=== PATIENT | female | born 1945 | race Caucasian/White ===

== ENCOUNTER 2021-06-24 14:31 | Inpatient (IN) | payer MEDICARE, OTHER ==
[~2021-06-24] VITALS: Ht 152 cm; Wt 59.0 kg
[~2021-06-24 14:31] MED LIST: ASPIRIN EC81 MG PO; ATORVASTATIN CA20 MG PO; CLOPIDOGREL75 MG PO; FUROSEMIDE20 MG PO; GABAPENTIN600 MG PO; HYDROCODON-ACE1 EAC1 PO; LASIX20 MG PO; MOBIC7.5 MG PO; SYNTHROID25 MCG PO
[2021-06-24 15:46] LABS: HEMOGLOBIN 8.4 gm/dl (12.3-15.3); RED BLOOD COUNT 2.91 M/UL (4.00-5.10); WHITE BLOOD COUNT 16.1 K/UL (4.5-11.0)
[2021-06-24] MEDS ORDERED: LEVOTHYROXINE50 MCG PO (18:36)
[2021-06-24] MEDS ORDERED: METOPROLOL TART25 MG PO (18:36)
[2021-06-24] MEDS ORDERED: PREDNISONE10 M1 PO (18:37)
[2021-06-24] MEDS ORDERED: BUMETANIDE0.5 MG PO (18:37)
[2021-06-24] MEDS ORDERED: CEFDINIR300 MG PO (18:38)
[2021-06-25 06:58] LABS: HEMOGLOBIN 8.4 gm/dl (12.3-15.3); RED BLOOD COUNT 2.88 M/UL (4.00-5.10); WHITE BLOOD COUNT 12.5 K/UL (4.5-11.0)
[2021-06-26 07:34] LABS: HEMOGLOBIN 8.3 gm/dl (12.3-15.3); RED BLOOD COUNT 2.91 M/UL (4.00-5.10)
[2021-06-28] MEDS ORDERED: LEVOFLOXACIN500 MG PO (17:07)
[2021-06-28] MEDS ORDERED: ELIQUIS 5 MG TAB5 MG PO (17:07)
[2021-06-28] MEDS ORDERED: MEDROL4 MG PO (17:11)
[2021-06-29 00:48] LABS: RED BLOOD COUNT 2.14 M/UL (4.00-5.10); WHITE BLOOD COUNT 13.1 K/UL (4.5-11.0)
[2021-06-29 00:49] LABS: HEMOGLOBIN 6.3 gm/dl (12.3-15.3)
--- NOTE | 2021-06-29 02:39 | NUR ---
APPROX 2200 PT STARTS DESATING IN 78-83% INCREASE O2 TO 4 AND 6 LITERS CAME UP TO 88%. PT IS SHOWING NO SIGNS DISTRESS, ORDER FOR HFNC RECIEVED, PT IS NOW SATING 99%.
--- NOTE | 2021-06-29 02:41 | NUR ---
0100 RECIEVED ORDER TO HOLD AM ELIQUIS DOSE PER MD DUE TO HGB 6.3. NOTIFIED PHARM ALEXANDER OF THIS.
--- NOTE | 2021-06-29 04:49 | NUR ---
0435 CALLED SON IAIN CELLPHONE, HOME#, AND MAURA DAUGHTER LAW # WITH NO ANSWER, 2 NUMBERS WENT TO VOICEMAIL BOXES. CALLED HOUSE AND WAS GIVEN 2 MORE NUMBERS TO TRY THOSE NUMBERS WHERE DISCONNECTED. NOTIFIED HOUSE. HOUSE IS GOING TO TRY AND CALL NUMBERS WELL. PT IS VERY CONFUSED AND IS UNABLE TO SIGN CONSENT FOR BLOOD TRANSFUSION.
--- NOTE | 2021-06-29 05:11 | NUR ---
0457 NOTIFIED MD MCKENZIE OF BEING UNSUCESSFUL AT REACHING ANYONE FOR CONSENT FOR BLOOD, NOTIFIED HOUSE, SUGGESTED TO LET MD SIGN EMERGENCY ORDER OR SEE AND WAIT TILL DAYSHIFT AM. NOTIFIED MD OF THIS HE ORDERED A REDRAW OF HGB AT THIS TIME AND GO FROM THERE, ALSO NOTIFIED PT HAS NOT VOIDED THIS SHIFT, BLADDER U/S SHOWED 740, ORDER TO PLACE ANTOINE CATH, NOTIFIED MD OF BLOOD GASES AND BNP, STATES TO START TITRATING PT 02 DOWN. 0500 NOTIFIED HOUSE OF MD DECISION REGARDING HGB.
--- NOTE | 2021-06-29 07:48 | NUR ---
Patient's hgb down to 6.4, this was a repeat after hgb was 6.3. I rec. report from slot shift manager RN that family could not be reach to give consent to transfuse PRBC'S as ordered, patient is not able to give consent. I attempted to reach family, called pat's. son Kana at [phone], and also called [phone], left a message on the answering machine to return my call. Also called Irlanda- [id number] also left a message on the answering machine to return my call. The phone number listed for Irlanda [phone]. Will call and make Dr. Page aware also.
[2021-06-29] MEDS ORDERED: FERROUS SULFAT325 M2 PO (10:13)
--- NOTE | 2021-06-29 19:28 | NUR ---
Patient rec. 1 unit of PRBC'S today- unit# [id number] patient tolerated transfusion without signs of reacton -approx. 250ml's
[2021-06-30 07:47] LABS: HEMOGLOBIN 7.2 gm/dl (12.3-15.3)
[2021-06-30 07:51] LABS: RED BLOOD COUNT 2.49 M/UL (4.00-5.10); WHITE BLOOD COUNT 16.7 K/UL (4.5-11.0)
--- NOTE | 2021-06-30 10:07 | NUR ---
RN ATTEMPTED TO FEED PATIENT AT THS TIME, PATIENT NOTED TO BE RESTING WITH EYES CLOSED. RN TURNED PATIENT ON RIGHT SIDE. NO S/SX OF DISTRESS AT PRESENT. PATIENT OPENED EYES WHEN RN TURNED HER BUT ONLY MUMBLED SOMETHING INCOMPREHENSIBLE THEN CLOSED THEM AGAIN.
[2021-06-30 16:06] LABS: HEMOGLOBIN 7.6 gm/dl (12.3-15.3); RED BLOOD COUNT 2.52 M/UL (4.00-5.10); WHITE BLOOD COUNT 17.2 K/UL (4.5-11.0)
[2021-07-01 04:57] LABS: HEMOGLOBIN 7.2 gm/dl (12.3-15.3); RED BLOOD COUNT 2.39 M/UL (4.00-5.10); WHITE BLOOD COUNT 15.4 K/UL (4.5-11.0)
[2021-07-02 07:00] LABS: HEMOGLOBIN 8.9 gm/dl (12.3-15.3); WHITE BLOOD COUNT 14.9 K/UL (4.5-11.0)
[2021-07-02 07:07] LABS: RED BLOOD COUNT 2.9 M/UL (4.00-5.10)
[2021-07-03 08:43] LABS: HEMOGLOBIN 9.5 gm/dl (12.3-15.3); RED BLOOD COUNT 3.16 M/UL (4.00-5.10); WHITE BLOOD COUNT 14.8 K/UL (4.5-11.0)
[2021-07-04 12:22] LABS: HEMOGLOBIN 9.4 gm/dl (12.3-15.3); RED BLOOD COUNT 3.13 M/UL (4.00-5.10); WHITE BLOOD COUNT 13.8 K/UL (4.5-11.0)
[2021-07-05 07:59] LABS: HEMOGLOBIN 8.5 gm/dl (12.3-15.3); RED BLOOD COUNT 2.9 M/UL (4.00-5.10)
[2021-07-06 04:25] LABS: HEMOGLOBIN 9.3 gm/dl (12.3-15.3); RED BLOOD COUNT 3.1 M/UL (4.00-5.10); WHITE BLOOD COUNT 10.8 K/UL (4.5-11.0)
--- NOTE | 2021-07-07 06:30 | NUR ---
PLESANTLY CONFUSED. RESTED MOST OF THE NIGHT.
[2021-07-07 15:07] LABS: HEMOGLOBIN 10.7 gm/dl (12.3-15.3); WHITE BLOOD COUNT 10.6 K/UL (4.5-11.0)
[2021-07-07 15:10] LABS: RED BLOOD COUNT 3.53 M/UL (4.00-5.10)
--- NOTE | 2021-07-07 15:32 | NUR ---
DURING SECOND ROUND OF IV KCL FOR K LEVEL 3.4 LABS WERE DRAWN PT K LEVEL NOW 3.6 DID NOT FINISH REMAINING 3 BAGS IN THE PROTOCOL PO POTASSIUM ORDERED WELL BY MD DELACRUZ
[2021-07-08 03:43] LABS: HEMOGLOBIN 10.2 gm/dl (12.3-15.3); RED BLOOD COUNT 3.42 M/UL (4.00-5.10); WHITE BLOOD COUNT 8.8 K/UL (4.5-11.0)
[2021-07-09 03:12] LABS: HEMOGLOBIN 10.8 gm/dl (12.3-15.3); RED BLOOD COUNT 3.54 M/UL (4.00-5.10)
[2021-07-10 09:11] LABS: RED BLOOD COUNT 3.32 M/UL (4.00-5.10); WHITE BLOOD COUNT 8.4 K/UL (4.5-11.0)
[2021-07-11 11:02] LABS: HEMOGLOBIN 8.6 gm/dl (12.3-15.3); WHITE BLOOD COUNT 7.2 K/UL (4.5-11.0)
[2021-07-11 11:10] LABS: RED BLOOD COUNT 2.89 M/UL (4.00-5.10)
--- NOTE | 2021-07-12 14:06 | NUR ---
PTS SON WAS ASLEEP ON THE COUCH, DOCTOR AND MYSELF TRIED TO WAKE HIM TO GIVE HIM AN UPDATE ON HIS MOTHER, HE WAS UNABLE TO WAKE UP. PT SON IS HAVING INAPPROPIATE BEHAVIOR AND BEING VERY RUDE TO THE STAFF OVER A GUESS TRAY WHEN HE WAS TOLD WE COULDNT GIVE HIM ONE. PTS SON THEN ATE THE PTS LUNCH TRAY, WHEN I WALKED IN AND SAW HIM EATING IT HE STATED THAT HE WAS JUST TASTE TESTING IT FOR HER. I TOLD HIM THAT THE DOOR HAS TO STAY OPEN DUE TO THAT I NEEDED TO KEEP AN EYE ON HER BECAUSE SHE IS GETTING A HEPARIN DRIP, SON WAS UPSET AND I HAVE TO KEEP GOING AN OPENING THE DOOR. WILL KEEP WATCHING.
[2021-07-13 07:19] LABS: RED BLOOD COUNT 2.78 M/UL (4.00-5.10)
[2021-07-13 07:23] LABS: WHITE BLOOD COUNT 11.2 K/UL (4.5-11.0)
[2021-07-14 07:16] LABS: HEMOGLOBIN 8.2 gm/dl (12.3-15.3); RED BLOOD COUNT 2.73 M/UL (4.00-5.10); WHITE BLOOD COUNT 9.8 K/UL (4.5-11.0)
[2021-07-14] MEDS ORDERED: ASPIRIN EC81 MG PO (12:49)
[2021-07-14] MEDS ORDERED: LIPITOR20 MG PO (12:49)
[2021-07-15 07:07] LABS: HEMOGLOBIN 8.4 gm/dl (12.3-15.3); RED BLOOD COUNT 2.76 M/UL (4.00-5.10); WHITE BLOOD COUNT 10.2 K/UL (4.5-11.0)
== END 2021-07-15 19:30 | disposition home health service (06) | DRG 871 ==
LOC: ER1 14:31 → CDU 18:12 → MED SURG 4 18:12
PROVIDERS: Internal Medicine; Internal Medicine Nephrology; Nurse Practitioner; ADMIT Internal Medicine
PROC: 30233N1 Transfusion of Nonautologous Red Blood Cells into Peripheral Vein, Percutaneous Approach (ICD-10-PCS; principal; 2021-06-29)
PROC: B24BZZZ Ultrasonography of Heart with Aorta (ICD-10-PCS; 2021-07-11)
DX: A41.9 Sepsis, unspecified organism (principal); J18.9 Pneumonia, unspecified organism; I50.23 Acute on chronic systolic (congestive) heart failure; J96.21 Acute and chronic respiratory failure with hypoxia; E43 Unspecified severe protein-calorie malnutrition; I21.A1 Myocardial infarction type 2; N17.9 Acute kidney failure, unspecified; J44.1 Chronic obstructive pulmonary disease with (acute) exacerbation; J44.0 Chronic obstructive pulmonary disease with (acute) lower respiratory infection; I13.0 Hypertensive heart and chronic kidney disease with heart failure and stage 1 through stage 4 chronic kidney disease, or unspecified chronic kidney disease; I42.9 Cardiomyopathy, unspecified; Z20.822 Contact with and (suspected) exposure to COVID-19; N18.30 Chronic kidney disease, stage 3 unspecified; I48.0 Paroxysmal atrial fibrillation; F03.90 Unspecified dementia, unspecified severity, without behavioral disturbance, psychotic disturbance, mood disturbance, and anxiety; I25.10 Atherosclerotic heart disease of native coronary artery without angina pectoris; N26.1 Atrophy of kidney (terminal); E03.9 Hypothyroidism, unspecified; F17.210 Nicotine dependence, cigarettes, uncomplicated; T38.0X5A Adverse effect of glucocorticoids and synthetic analogues, initial encounter; D50.9 Iron deficiency anemia, unspecified; E87.6 Hypokalemia; E86.0 Dehydration; R53.81 Other malaise; R65.20 Severe sepsis without septic shock; R80.9 Proteinuria, unspecified; I25.2 Old myocardial infarction; Z79.899 Other long term (current) drug therapy; Z79.52 Long term (current) use of systemic steroids; Z79.82 Long term (current) use of aspirin; Z68.30 Body mass index [BMI] 30.0-30.9, adult
CPT/HCPCS: ECHO; 36415; 36430; 36600; 51701; 70450; 71045; 80048; 80053; 80202; 81001; 82550; 82553; 82803; 83540; 83550; 83605; 83735; 83874; 83880; 84100; 84132; 84484; 85018; 85025; 85027; 85610; 85730; 86140; 86850; 86900; 86901; 86920; 87040; 87081; 93005; 93306; 94640; 94760; 97110; 97110-GP-CQ; 97162; 97166; 97530-GP-CQ; 99285; J0692; J1644; J1650; J1756; J1940; J2185; J3370; J3475; J3480; J7030; J7050; J7070; P9016; P9047; U0002